=== PATIENT | female | born 1965 | race Caucasian/White ===

== ENCOUNTER 2021-03-09 | Emergency (ER) | payer MEDICARE, SELFPAY ==
--- NOTE | ~2021-03-09 | XR_ITS ---
EXAMINATION: XR hip LT min 2V INDICATION: Left hip pain TECHNIQUE: Two views of the left hip are obtained. COMPARISON: None available FINDINGS: Bone alignment is normal. There is no fracture. Surgical changes are noted in the lower lum bar spine/sacrum and left sacroiliac joint. IMPRESSION: 1. No acute osseous abnormality. Reviewed, dictated and finalized at location A.
[2021-03-09 00:15] VITALS: BP 134/76; PULSE 58; RESP 18; TEMP 36.3; O2SAT 96
[2021-03-09 02:27] VITALS: BP 126/67; PULSE 53; RESP 16; O2SAT 97
[2021-03-09] MEDS: CYCLOBENZAPRINE HCL 10 MG TABLET PO (02:30)
[2021-03-09] MEDS: MORPHINE SULFATE (*CRX) 4 MG/ML INJ IM (02:31)
[2021-03-09] MEDS: methylPREDNISolone SOD SUCC 125 MG VIAL IM (02:34)
--- NOTE | 2021-03-09 03:21 | ED.GENADULT ---
HPI - General Adult General Chief complaint: Extremity Problem,Nontraumatic Stated complaint: Left hip pain Time Seen by Provider: 03/09/21 02:04 History of Present Illness HPI narrative: Patient 56-year-old female presents the emergency department with chief complaint of left hip pain. Patient states that she has had chronic pain that is been getting worse patient reports that the pain shoots down her leg reports that it is worse with movement denies any saddle anesthesia denies bowel or bladder dysfunction. Related Data Allergies Allergy/AdvReac Type Severity Reaction Status Date / Time adhesive Allergy Unknown Unknown Verified 03/09/21 00:20 povidone-iodine Allergy Unknown Unknown Verified 03/09/21 00:20 [From Betadine] gabapentin Allergy Hives Verified 03/09/21 02:28 Review of Systems Review of Systems: A 10 system review of systems was completed on the patient and is negative except for what is stated in the HPI. Nursing and ancillary documentation was reviewed. Exam Narrative: GENERAL: Well-appearing, well-nourished, and in no acute distress. HEAD: Normocephalic, atraumatic. EYES: PERRLA and EOMI. ENT: Nares clear, no rhinorrhea or epistaxis. Mucous membranes moist. NECK: Supple. CHEST: Clear to auscultation. No respiratory distress. HEART: Regular rate and rhythm. No murmur heard. Normal peripheral pulses. ABDOMEN: Soft, nontender, nondistended, normal active bowel sounds. EXTREMITIES: Normal range of motion. No edema. Tenderness to the left SI joint SKIN: Warm, dry, no rash. NEURO: No focal deficits. Alert and oriented x3. PSYCH: Normal mood and affect. Course Vital Signs Vital signs: Vital Signs Temperature 36.3 C L 03/09/21 00:15 Pulse Rate 58 L 03/09/21 00:15 Respiratory Rate 18 03/09/21 00:15 Blood Pressure 134/76 03/09/21 00:15 Pulse Oximetry 96 03/09/21 00:15 Temperature 36.3 C L 03/09/21 00:15 Pulse Rate 53 L 03/09/21 02:27 Respiratory Rate 16 03/09/21 02:27 Blood Pressure 126/67 03/09/21 02:27 Pulse Oximetry 97 03/09/21 02:27 Medical Decision Making Vital Signs Vital Signs: Vital Signs Temperature 36.3 C L 03/09/21 00:15 Pulse Rate 58 L 03/09/21 00:15 Respiratory Rate 18 03/09/21 00:15 Blood Pressure 134/76 03/09/21 00:15 Pulse Oximetry 96 03/09/21 00:15 Temperature 36.3 C L 03/09/21 00:15 Pulse Rate 53 L 03/09/21 02:27 Respiratory Rate 16 03/09/21 02:27 Blood Pressure 126/67 03/09/21 02:27 Pulse Oximetry 97 03/09/21 02:27 Discharge Plan Discharge Clinical Impression: Sciatica Qualifiers: Laterality: left Qualified Code(s): M54.32 - Sciatica, left side Patient Disposition: Home, Self-Care Condition: Stable Instructions: Antibiotic Form, Sciatica (ED) Prescriptions: New methylprednisolone [Medrol (Tyler)] 4 mg tablets,dose pack See Rx Instructions PO .COMPLEX Qty: 21 RF: 0 diazepam [Valium] 2 mg tablet 2 mg PO TID PRN (Reason: muscle spasm) 4 Days Qty: 12 RF: 0 Follow-up/Referrals: PHYSICIAN NOT ON STAFF,NONSTAFF [Primary Care Provider] - Time of Disposition: 04:41
--- NOTE | 2021-03-09 03:24 | PC.NURSE ---
Pt reports generalized itching. Raised area noted to left upper arm. No hives or other s/s reported at this time. EDP notified.
--- NOTE | 2021-03-09 03:29 | PC.NURSE ---
Report given to Nova Sharma RN
[2021-03-09] MEDS: diphenhydrAMINE HCl INJ 50 MG/ML VIAL 25 MG IM (03:30)
[2021-03-09 04:56] VITALS: BP 124/68; PULSE 60; RESP 18; O2SAT 100
== END 2021-03-09 04:57 | disposition home or self-care (01) ==
PROVIDERS: Emergency Provider Emergency Medicine
DX: M54.30 Sciatica, unspecified side (principal)
CPT/HCPCS: 73502; 96372; 99284; A9270; J1200; J2270; J2930

== ENCOUNTER 2021-05-12 19:53 | Emergency (ER) | payer MEDICARE, SELFPAY ==
[2021-05-12 20:00] VITALS: BP 136/62; PULSE 53; RESP 15; TEMP 36.5; O2SAT 97
== END 2021-05-13 03:43 | disposition left against medical advice (07) ==
DX: S39.92XA Unspecified injury of lower back, initial encounter (principal)
CPT/HCPCS: 99199

== ENCOUNTER 2021-05-13 09:25 | Emergency (ER) | payer MEDICARE, SELFPAY ==
--- NOTE | ~2021-05-13 | XR_ITS ---
EXAMINATION: XR hip LT min 2V DATE: 05/13/2021 11:18 INDICATION: Left hip pain. Fall. TECHNIQUE: 3 views of left hip were obtained. COMPARISON: None. FINDINGS: Bone alignment is normal. No fracture. There are 2 sclerotic lesions in the left pelvis wit h the larger measuring 15 mm. Osteitis pubis is noted. There is mild left hip osteoarthritis. There i s internal fixation of the sacroiliac joints with instrumentation. Partially visualized are screws in the sacrum. IMPRESSION: 1. Mild left hip osteoarthritis. 2. Sclerotic lesions in left pelvis measuring up to 15 mm. In the absence of known malignancy, these findings are likely benign bone islands. Reviewed, dictated and finalized at location B. [employer] IMPRESSION: 1. Mild left hip osteoarthritis. 2. Sclerotic lesions in left pelvis measuring up to 15 mm. In the absence of kn own malignancy, these findings are likely benign bone islands.
--- NOTE | ~2021-05-13 | XR_ITS ---
EXAMINATION: XR lumbar spine 2-3V EXAM DATE: 05/13/2021 11:18 INDICATION: Fall, lower back, hx of surgery. Initial encounter. TECHNIQUE: Lumber spine frontal, lateral, lateral L5-S1 projections for interpretation. There is no prior study for comparison. FINDINGS: Sacrum, sacroiliac joints, sacral arcuate lines are intact. There are no acute fractures id entified. Posterior fusion hardware with pedicular screws, linking vertical rods from L3 through S1. No hardware fracture. Interbody fusion at these levels as well as fusion hardware at the sacroiliac joints. L3-L5 laminectomies. Moderate thoracolumbar disc disease. Spine stimulator pack. There are ch olecystectomy clips. Left ischial sclerotic focus measuring about 1 cm, probably bone island. IMPRESSION: 1. Surgical changes. 2. Moderate spondylosis. Reviewed, dictated and finalized at location A. PRINTER
[2021-05-13 09:40] VITALS: BP 123/64; PULSE 85; RESP 18; TEMP 36.3; O2SAT 99
--- NOTE | 2021-05-13 11:00 | ED.BACK ---
HPI - Back Pain/Injury General Chief Complaint: Extremity Injury, Lower Stated Complaint: Left Hip,Lower back Pain Time Seen by Provider: 05/13/21 11:01 Source: patient and RN notes reviewed Mode of arrival: ambulatory Limitations: no limitations History of Present Illness HPI Narrative: 56-year-old female presents concern for left hip and low back pain. Reports last night she fell off of a ladder. Reports she was about 2 feet off the ground when she fell and landed on her back. She reports left hip pain at rest, worsening pain with weightbearing. She reports she has been taking her already prescribed pain medicine and Aleve without relief of pain. She also reports low back pain, worse on the left. She reports a history of multiple back surgeries, currently has a pain pump. She reports red abrasion on the left arm, denies any other redness or bruising. MD elicited complaint: back pain Related Data Home Medications Medication Instructions Recorded Confirmed albuterol sulfate 2 puff INHALATION QID PRN 05/13/21 05/13/21 aripiprazole 5 mg PO DAILY 05/13/21 05/13/21 bupropion HCl 150 mg PO DAILY 05/13/21 05/13/21 diazepam 2 mg PO DAILY 05/13/21 05/13/21 latanoprost 1 drp EACH EYE DAILY 05/13/21 05/13/21 losartan 50 mg PO DAILY 05/13/21 05/13/21 metronidazole 250 mg PO DAILY 05/13/21 05/13/21 oxycodone-acetaminophen 1 tablet PO DAILY 05/13/21 05/13/21 propranolol 40 mg PO DAILY 05/13/21 05/13/21 ropinirole 5 mg PO DAILY 05/13/21 05/13/21 sertraline 100 mg PO DAILY 05/13/21 05/13/21 zolpidem 10 mg PO DAILY 05/13/21 05/13/21 Allergies Allergy/AdvReac Type Severity Reaction Status Date / Time adhesive Allergy Unknown Unknown Verified 05/13/21 10:24 povidone-iodine Allergy Unknown Unknown Verified 05/13/21 10:24 [From Betadine] gabapentin Allergy Hives Verified 05/13/21 10:24 Sulfa (Sulfonamide Allergy Hives Verified 05/13/21 10:24 Antibiotics) Review of Systems Review of Systems: CONSTITUTIONAL: Denies malaise, chills, sweats, or fever. GASTROINTESTINAL: Denies abdominal pain GENITOURINARY: Denies dysuria or hematuria. SKIN: Reports redness to the left arm MUSCULOSKELETAL: Reports left low back pain, left hip pain NEUROLOGIC: Denies numbness, weakness All systems reviewed & are unremarkable except as noted in HPI and below PMFSH Comments At time of signature, agree with nursing past medical, surgical, social and family history. There is no relevant family history pertinent to the presenting complaint Exam Narrative: GENERAL: Well-appearing, well-nourished, and in no acute distress. HEAD: Normocephalic, atraumatic. EYES: PERRLA, sclera clear ENT: Mucous membranes moist. NECK: Supple. CHEST: No respiratory distress. Speaks in full sentences. HEART: Regular rate and rhythm. ABDOMEN: Soft, nontender, obese EXTREMITIES: Normal gait. Grossly normal range of motion, equal strength and sensation bilateral lower extremities. Left hip tenderness to palpation. No mid spine tenderness SKIN: Warm, dry, no visible rash. NEURO: Alert and oriented x3. PSYCH: Normal mood and affect Course Course Emergency Course: Discussed with patient transfer to emergency room for further evaluation of her pain, patient does not wish to be transferred to the emergency room at this time. Discussed trying a Toradol IM injection, patient is agreeable. Discussed hip x-ray findings and follow-up with primary care. Patient is aware of, understands and agrees to treatment plan. Anticipatory guidance given. Patient agrees to follow-up as directed and is aware of reasons to seek care at the emergency department. Portions of this record may have been created with voice recognition software Vital Signs Vital signs: Vital Signs Temperature 97.3 F L 05/13/21 09:40 Pulse Rate 85 05/13/21 09:40 Respiratory Rate 18 05/13/21 09:40 Blood Pressure 123/64 05/13/21 09:40 Pulse Oximetry 99 05/13/21 09:40 Temperature 97.3 F L
[2021-05-13] MEDS: KETOROLAC (*BKC) 60 MG/2 ML VIAL IM (11:47)
== END 2021-05-13 12:05 | disposition home or self-care (01) ==
PROVIDERS: Emergency Provider Nurse Practitioner
DX: M25.552 Pain in left hip (principal); M47.816 Spondylosis without myelopathy or radiculopathy, lumbar region; E78.00 Pure hypercholesterolemia, unspecified; I10 Essential (primary) hypertension; Z96.653 Presence of artificial knee joint, bilateral; Z98.42 Cataract extraction status, left eye; Z98.41 Cataract extraction status, right eye; H40.9 Unspecified glaucoma; G25.81 Restless legs syndrome
CPT/HCPCS: 72100; 73502; 96372; 99214; G0463; J1885

== ENCOUNTER 2021-08-11 10:23 | Emergency (ER) | payer MEDICARE, SELFPAY ==
--- NOTE | 2021-08-11 10:31 | ED.FEMALEGU ---
HPI - Female Genitourinary General Chief complaint: Urogenital-Female Stated complaint: Female Urogenital Time Seen by Provider: 08/11/21 10:35 Source: patient, RN notes reviewed and old records reviewed Mode of arrival: ambulatory Limitations: no limitations History of Present Illness HPI Narrative: 56 year old female who presents to [facility] care with complaints of vaginal pain with some bleeding noted after having sexual intercourse on Wednesday. Patient reports that she got engaged on Wednesday and fiance got over zealous during intercourse and she noted bright red bleeding after having sex and has continued to have vaginal pain. Patient denies any bleeding noted today but continues to have vaginal discomfort. Patient reports no concern for any exposure to STD's, denies any vaginal discharge, reports some urinary burning but no urinary frequency or urgency. Related Data Home Medications Medication Instructions Recorded Confirmed albuterol sulfate 2 puff INHALATION QID PRN 05/13/21 08/11/21 losartan 50 mg PO DAILY 05/13/21 08/11/21 oxycodone-acetaminophen 1 tablet PO DAILY PRN 05/13/21 08/11/21 Allergies Allergy/AdvReac Type Severity Reaction Status Date / Time adhesive Allergy Mild Hives Verified 08/11/21 10:30 gabapentin Allergy Mild Hives Verified 08/11/21 10:30 povidone-iodine Allergy Mild Hives Verified 08/11/21 10:30 [From Betadine] Sulfa (Sulfonamide Allergy Mild Hives Verified 08/11/21 10:30 Antibiotics) Review of Systems Review of Systems: CONSTITUTIONAL: Denies fever, chills, or sweats. EYES: Denies visual changes, redness, or discharge. ENT: Denies rhinorrhea, congestion, sore throat, or otalgia. CARDIOVASCULAR: Denies chest pain, palpitations, or edema. RESPIRATORY: Denies cough or dyspnea. GASTROINTESTINAL: Denies abdominal pain, nausea, vomiting, or diarrhea. GENITOURINARY: Positive for dysuria or hematuria. Vaginal pain with some bleeding noted after intercourse on Wednesday SKIN: Denies rash or itching. MUSCULOSKELETAL: chronic back pain, joint pain, or myalgia. NEUROLOGIC: Denies headache, numbness, or weakness. PSYCHIATRIC: Positive for history of anxiety or depression. All systems reviewed & are unremarkable except as noted in HPI and below PMFSH Past Medical History Medical History (Updated 08/11/21 @ 15:38 by Cinda Bingham NP) Chronic back pain Glaucoma Hypertension Restless leg syndrome Surgical History Surgical History (Updated 08/11/21 @ 15:42 by Cinda Bingham NP) History of back surgery x5 History of bilateral knee replacement Social History Social History (Updated 08/11/21 @ 15:40 by Cinda Bingham NP) Alcohol intake: current Alcohol use details: rare social use Substance use: current Substance use type: opiates Last use: for chronic pain Living arrangements: with family Gender identity (if verbalized by the patient): Female Comments At time of signature, agree with nursing past medical, surgical, social and family history. There is no relevant family history pertinent to the presenting complaint Exam Narrative: GENERAL: Well-appearing, well-nourished, and in no acute distress. HEAD: Normocephalic, atraumatic. EYES: PERRLA and EOMI. ENT: Nares clear, no rhinorrhea or epistaxis. Mucous membranes moist. TM's normal with good light reflex, throat pink with no lesions or exudates NECK: Supple. no lymphadenopathy CHEST: Clear to auscultation. No respiratory distress.SAO2 100% on room air HEART: Regular rate and rhythm. No murmur heard. Normal peripheral pulses. ABDOMEN: Soft, nontender, nondistended, normal active bowel sounds.No CVA tenderness, some vaginal discomfort and burning with urination. EXTREMITIES: Normal range of motion. No edema. SKIN: Warm, dry, no rash. NEURO: No focal deficits. Alert and oriented x3. Course Course Level of Care: Express Care Visit Vital Signs Vital signs: Vital Signs Temperature 36.6 C 08/11/21 10
[2021-08-11 10:35] VITALS: BP 121/62; PULSE 61; RESP 18; TEMP 36.6; O2SAT 100
== END 2021-08-11 11:26 | disposition home or self-care (01) ==
PROVIDERS: Emergency Provider Registered Nurse; PCP Physician Assistant
DX: R10.2 Pelvic and perineal pain (principal); N39.0 Urinary tract infection, site not specified; H40.9 Unspecified glaucoma; I10 Essential (primary) hypertension; G25.81 Restless legs syndrome; Z96.653 Presence of artificial knee joint, bilateral
CPT/HCPCS: 81003; 87086; 87088; 99214; G0463

== ENCOUNTER 2023-05-24 11:23 | Emergency (ER) | payer MEDICARE, SELFPAY ==
--- NOTE | ~2023-05-24 | XR_ITS ---
XR hip RT 2V w AP pelvis 05/24/2023 12:08 Indication: Status post recent fall. Right posterior hip pain. Procedure: AP pelvis and 2 views right hip Comparison: Lumbar spine series dated 05/13/2021 Findings: There are surgical changes consistent with anterior fusion with partially visualized hardwa re transfixing the lumbosacral junction. There is interbody fusion at the sacroiliac joints. Mild ost eoarthritis of the hips, left greater than right. There is osteitis pubis. Sclerotic lesion of the le ft pelvis, likely bone island. No acute fracture or traumatic malalignment. Impression: 1: No acute bone or joint abnormality. Reviewed, dictated and finalized at location B. IDE GRINDER Impression: 1: No acute bone or joint abnormality.
[2023-05-24 11:49] VITALS: BP 152/81; PULSE 55; RESP 18; TEMP 35.7; O2SAT 97
--- NOTE | 2023-05-24 11:59 | ED.EXTPRO ---
HPI - Extremity Problem General Chief complaint: Extremity Injury, Lower Stated complaint: fall rt hip and leg pain Time Seen by Provider: 05/24/23 11:52 Source: patient and RN notes reviewed Mode of arrival: ambulatory Limitations: no limitations History of Present Illness HPI Narrative: Patient presents today complaining a right posterior hip pain that radiates down the posterior thigh to the knee. Patient fell backwards 2 weeks ago helping to move a person on a [employer], then that person fell on top of her. States the pain is unchanged since the injury. She reports some tingling in her leg, but this is baseline for her. Denies loss of bowel or bladder control. She currently rates her pain 9/10. She takes Percocet for her chronic pain, which does not help with this acute pain. Patient has fused bilateral SI joints and a spinal cord stimulator. Related Data Home Medications Medication Instructions Recorded Confirmed albuterol sulfate 90 mcg/actuation 2 puff inhalation QID PRN 05/13/21 05/24/23 aerosol inhaler difficulty breathing losartan 50 mg tablet 50 mg PO DAILY 05/13/21 05/24/23 oxycodone-acetaminophen 7.5 mg-325 1 tablet PO DAILY PRN Pain 05/13/21 05/24/23 mg tablet ropinirole 5 mg tablet 5 mg PO DAILY 10/05/22 05/24/23 zolpidem 10 mg tablet 10 mg PO ONCE 10/05/22 05/24/23 Allergies Allergy/AdvReac Type Severity Reaction Status Date / Time adhesive Allergy Mild Hives Verified 05/24/23 11:56 gabapentin Allergy Mild Hives Verified 05/24/23 11:56 povidone-iodine Allergy Mild Hives Verified 05/24/23 11:56 [From Betadine] Sulfa (Sulfonamide Allergy Mild Hives Verified 05/24/23 11:56 Antibiotics) Review of Systems Review of Systems: CONSTITUTIONAL: Denies body aches, fever, chills, or sweats. EYES: Denies visual changes, redness, or discharge. ENT: Denies rhinorrhea, congestion, sore throat, or otalgia. CARDIOVASCULAR: Denies chest pain, palpitations, or edema. RESPIRATORY: Denies cough or dyspnea. GASTROINTESTINAL: Denies abdominal pain, nausea, vomiting, or diarrhea. GENITOURINARY: Denies dysuria or hematuria. SKIN: Denies rash, itching, or wounds. MUSCULOSKELETAL: Denies back pain. + right hip pain NEUROLOGIC: Denies headache, numbness, tingling, or weakness. PSYCH: Denies depression or anxiety. [facility] Past Medical History Medical History Arthritis Asthma Chronic back pain Glaucoma Hypertension Restless leg syndrome Surgical History Surgical History H/O: hysterectomy History of 3 sections 1984, 1987, 1994 History of back surgery x5 History of bilateral knee replacement Family History Family History Father Hypertension Mother Cancer Hypertension Heart problem Grandparent Cancer Hypertension Grandparent Cancer Hypertension Heart problem Social History Social History Social History: Madisyn is currently sexually active, no contraception needed as she had a hysterectomy. Recently remarried. Does not currently have an advanced directive/will. Smoking status: Former smoker Alcohol intake: current Alcohol use details: rare social use Substance use: current Substance use type: opiates Last use: for chronic pain Living arrangements: with family Gender identity (if verbalized by the patient): Female Sexual Orientation (if Verbalized by the Patient): Straight or Heterosexual Spiritual care concerns: No Agree to blood products: Yes Comments At time of signature, I have reviewed and agree with nursing past medical, surgical, social and family history unless otherwise noted. Please see nursing chart for further information. There is no relevant family history pertinent to the presenting complaint
== END 2023-05-24 12:50 | disposition home or self-care (01) ==
PROVIDERS: Emergency Provider Nurse Practitioner; PCP Registered Nurse
DX: M25.551 Pain in right hip (principal); Z87.891 Personal history of nicotine dependence; M19.90 Unspecified osteoarthritis, unspecified site; J45.909 Unspecified asthma, uncomplicated; H40.9 Unspecified glaucoma; I10 Essential (primary) hypertension; G25.81 Restless legs syndrome; Z96.653 Presence of artificial knee joint, bilateral
CPT/HCPCS: 73502; 99213; G0463

== ENCOUNTER 2024-04-03 10:03 | Emergency (ER) | payer MEDICARE, SELFPAY ==
[2024-04-03 10:32] VITALS: BP 152/70; PULSE 71; RESP 20; TEMP 36.7; O2SAT 99
--- NOTE | 2024-04-03 10:43 | ED.URI ---
HPI - URI/Sore Throat General Chief Complaint: Skin/Abscess/Foreign Body Stated Complaint: Rash Time Seen by Provider: 04/03/24 11:00 Source: patient, RN notes reviewed and old records reviewed Mode of arrival: ambulatory Limitations: no limitations History of Present Illness HPI Narrative: patient presents with complaints of red raised rash to bilateral arms for a couple of days. She denies any change in lotions, soaps, detergents. She denies any contact with irritants. She has been applying hydrocortisone with no relief. She voices no other concerns or complaints today Related Data Home Medications Medication Instructions Recorded Confirmed albuterol sulfate 90 mcg/actuation 2 puff inhalation QID PRN 05/13/21 04/03/24 aerosol inhaler difficulty breathing losartan 50 mg tablet 100 mg PO DAILY 05/13/21 05/24/23 oxycodone-acetaminophen 7.5 mg-325 1 tablet PO DAILY PRN Pain 05/13/21 04/03/24 mg tablet ropinirole 5 mg tablet 5 mg PO DAILY 10/05/22 04/03/24 zolpidem 10 mg tablet 10 mg PO ONCE 10/05/22 04/03/24 Allergies Allergy/AdvReac Type Severity Reaction Status Date / Time adhesive Allergy Mild Hives Verified 04/03/24 10:50 gabapentin Allergy Mild Hives Verified 04/03/24 10:50 povidone-iodine Allergy Mild Hives Verified 04/03/24 10:50 [From Betadine] Sulfa (Sulfonamide Allergy Mild Hives Verified 04/03/24 10:50 Antibiotics) Review of Systems Review of Systems: All systems reviewed & are unremarkable except as noted in HPI and below Constitutional: Constitutional: Reports no additional constitutional complaints ENT: Reports system reviewed and no additional complaints, except as documented Cardiovascular: Cardiovascular: Reports no additional cardiovascular complaints Respiratory: Respiratory: Reports no additional respiratory complaints Gastrointestinal: Gastrointestinal: Reports no additional gastrointestinal complaints Integumentary/Breasts: Skin/Breast: Reports system reviewed and no additional complaints, except as docu, Reports as per HPI, Reports pruritus and Reports rash PMFSH Past Medical History Medical History Arthritis Asthma Chronic back pain Glaucoma Hypertension Restless leg syndrome Surgical History Surgical History H/O: hysterectomy History of 3 sections 1984, 1987, 1994 History of back surgery x5 History of bilateral knee replacement Family History Family History Father Hypertension Mother Cancer Hypertension Heart problem Grandparent Cancer Hypertension Grandparent Cancer Hypertension Heart problem Social History Social History Social History: Madisyn is currently sexually active, no contraception needed as she had a hysterectomy. Recently remarried. Does not currently have an advanced directive/will. Smoking status: Former smoker Alcohol intake: current Alcohol use details: rare social use Substance use: current Substance use type: opiates Last use: for chronic pain Living arrangements: with family Gender identity (if verbalized by the patient): Female Sexual Orientation (if Verbalized by the Patient): Straight or Heterosexual Spiritual care concerns: No Agree to blood products: Yes Comments At the time of my signature, I reviewed and agree with the nursing past medical, surgical, social, and family history. There is no relevant family history pertinent to the patient complaint. Exam Const: General: cooperative, no acute distress, alert and awake Orientation/consciousness: oriented to person, oriented to place and oriented to time HENMT: Head: normal to inspection Resp: Effort & Inspection: normal respiratory effort and able to speak in complete sentences Auscultation: clear to auscu
== END 2024-04-03 11:40 | disposition home or self-care (01) ==
PROVIDERS: Emergency Provider Nurse Practitioner Family; PCP Registered Nurse
DX: I10 Essential (primary) hypertension (principal); L25.9 Unspecified contact dermatitis, unspecified cause; Z87.891 Personal history of nicotine dependence; M19.90 Unspecified osteoarthritis, unspecified site; J45.909 Unspecified asthma, uncomplicated; H40.9 Unspecified glaucoma; G25.81 Restless legs syndrome; Z96.653 Presence of artificial knee joint, bilateral
CPT/HCPCS: 99211; G0463

== ENCOUNTER 2024-07-17 10:16 | Emergency (ER) | payer MEDICARE, SELFPAY ==
[2024-07-17] VITALS (11 sets, daily range): BP systolic 125–145; BP diastolic 69–100; PULSE 68–131; RESP 12–21; TEMP 36.7–37.1; O2SAT 96–99
--- OUTSIDE RECORDS SUMMARY | 2024-07-17 11:13 | XMS_ITS | Encounter Summary ---
Author Organization [facility] Address [address] [place] [address]. [place] [address] [place] [address] Care Team Providers Care Benzene Still Utility Operator Name Role Phone Bruno Shankar MD Primary Care Provider [phone] Senthil Kessler MD Unavailable [phone] Dinorah Armendariz Primary Care Provider [phone] Karely Lopez Primary Care Provider [phone] Lavinia Ann RN Unavailable [phone] Encounter Details Date Type Department Care Team (Late st Contact Info) Description 08/01/2018 Abstract [facility] at [address] [address] Hallie Christensen MA Social History Tobacco Use Types Packs/Day Years Used Date Smoking Tobacco: Never Smokeless Tobacco: Never Alcohol Use Standard Drinks/Week Comments Yes 0 (1 standard drink = 0.6 oz pur e alcohol) 2 per year Comments No Sex and Gender Information Value Date Recorded Sex Assigned at Not on file Legal Sex Female 11:50 PM CDT Gender Identity Not on file Sexual Orientation Not on file Occupation Industry Job Start Date Job End Date Not on file Not on file Not on file Not on file documented as of this encounter Progress Notes * Prema Wu, ANP-BC - 08/01/2018 12:09 PM CST PG pt send letter continue current meds NEERING SECRETARY documented in this encounter Plan of Treatment Upcoming Encounters Date Type Department Care Team (Late st Contact Info) Description 12/13/2024 11:00 AM CDT Office Visit [facility] THREE [facility], [address] [place], [place] [id number] Senthil Kessler MD [facility] [address] [place], [place] [id number] documented as of this encounter Procedures Procedure Name Priority Date/Time Associated Diagnosis Comments BASIC METABOLIC PANEL Routine 03/22/2019 CBC (OUTSIDE LAB) Routine 01/24/2018 COMPREHENSIVE METABOLIC PANEL Routine 01/24/2018 LIPID PANEL Routine 01/24/2018 documented in this encounter Results * (ABNORMAL) BASIC METABOLIC PANEL (03/22/2019) SODIUM S/P/B 145 POTASSIUM S/P/B 3.8 CO2 34 CHLORIDE S/P/B 104 GLUCOSE 107 mg/dL CALCIUM S/P/B 9.3 BUN 10 CREATININE S/P/B 0.68 0.5 - 1.0 EGFR AFR. AMER. 113(A) <=90 EGFR NON-AFR. AMER. 98(A) <=90 03/22/2019 [facility] Abstract LABORATORY Final Result * CBC (OUTSIDE LAB) (01/24/2018) WBC 8.9 HGB 14.9 HCT 43.9 PLT 334 01/24/2018 us [facility] Abstract LAB-OUTSIDE/ABSTRACTED Final Result * LIPID PANEL (01/24/2018) CHOLESTEROL 198 HDL 61 TRIGLYCERIDES 88 NON HDL CHOLESTEROL 137 LDL (CALCULATED) 118 01/24/2018 [facility] Abstract LABORATORY Final Result * (ABNORMAL) COMPREHENSIVE METABOLIC PANEL (01/24/2018) SODIUM S/P/B 139 POTASSIUM S/P/B 4.8 CO2 30 CHLORIDE S/P/B 101 GLUCOSE 93 mg/dL CALCIUM S/P/B 9.7 BUN 23 CREATININE S/P/B 1.12(A) 0.5 - 1.0 EGFR AFR. AMER. 64 <=90 EGFR NON-AFR. AMER. 56 <=90 ALKALINE PHOSPHATASE S/P/B 121 ALT 11 AST 14 BILIRUBIN TOTAL S/P/B 0.6 ALBUMIN S/P/B 4.5 3.5 - 5.0 TOTAL PROTEIN S/P/B 7.7 GLOBULIN 3.2 01/24/2018 us Doc [facility] Abstract LABORATORY Final Result documented in this encounter Visit Diagnoses Not on filedocumented in this encounter Care Teams Benzene Still Utility Operator Relationship Specialty Start Date End Date Bruno Shankar MD [address] [place] [address] PCP - General FAMILY PRACTICE 11/20/15 11/17/18 Dinorah Armendariz PA [address] [place] [address] PCP - General PHYSICIAN PRACTICE MANAGEMENT CONSULTANT 11/19/18 01/07/23 Karely Lopez APNP [address] [place] [address] PCP - General NURSE PRACTITIONER 01/08/23 Senthil Kessler MD [address] [address] Akash C++ Quant Developer CARDIOVASCULAR DISEASE 11/20/15 Lavinia Ann, RN [address] [facility] [address] [place] [address] Registered Nurse CARE MANAGEMENT 02/04/24 02/15/24 documented as of this encounter
--- OUTSIDE RECORDS SUMMARY | 2024-07-17 11:13 | XMS_ITS | Encounter Summary ---
Author Organization [facility] Address [address] [place] [address]. [place] [address] [place] [address] Care Team Providers Care Parts Puller Name Role Phone Senthil Kessler MD Unavailable [phone] Karely Lopez Primary Care Provider [phone] Lavinia Ann RN Unavailable [phone] Encounter Details Date Type Department Care Team (Late Contact Info) Description 01/13/2023 Sogou Message Enc [facility], [address] [phone] [facility], [facility] Provider Lab results Social History Tobacco Use Types Packs/Day Years Used Date Smoking Tobacco: Never Smokeless Tobacco: Never Alcohol Use Standard Drinks/Week Comments Yes 0 (1 standard drink = 0.6 oz pur e alcohol) 2 per year PHQ-2 Answer Date Recorded Patient Health Questionnaire-2 Score 0 01/06/2023 Comments No Sex and Gender Information Value Date Recorded Sex Assigned at Not on file Legal Sex Female 11:50 PM CDT Gender Identity Not on file Sexual Orientation Not on file Occupation Industry Job Start Date Job End Date Not on file Not on file Not on file Not on file documented as of this encounter Plan of Treatment Upcoming Encounters Date Type Department Care Team (Late Contact Info) Description 12/13/2024 11:00 AM CDT Office Visit [facility], [facility] [address] [place], [place] [phone] Senthil Kessler MD Three [facility]. [facility] [address] [place] [address] documented as of this encounter Visit Diagnoses Not on filedocumented in this encounter Additional Health Concerns Assessment Noted Time PHQ-9 Depression Total Score: 1 01/07/20 23 1:40 PM CDT documented as of this encounter Care Teams Parts Puller Relationship Specialty Start Date End Date Karely Lopez APNP [address] [place] [address] PCP - General NURSE PRACTITIONER 01/08/23 Senthil Kessler MD Three [facility]. [address] [address] Aaksh Multiple Drum Sander CARDIOVASCULAR DISEASE 11/20/15 Lavinia Ann, RN [address] [facility] [address] [place] [address] Registered Nurse CARE MANAGEMENT 02/04/24 02/15/24 documented as of this encounter
--- OUTSIDE RECORDS SUMMARY | 2024-07-17 11:13 | XMS_ITS | Encounter Summary ---
Author Organization [facility] Address [address] [place] [address]. [place] [address] [place] [address] Care Team Providers Care Mat Roller Name Role Phone Senthil Kessler MD Unavailable [phone] Dinorah Armendariz Primary Care Provider [phone] Karely Lopez Primary Care Provider [phone] Lavinia Ann RN Unavailable [phone] Encounter Details Date Type Department Care Team (Late Contact Info) Description 11/26/2022 OneTeamVisi Message Enc [facility] THREE [address] [address] Mychart, [facility] Provider chest xray Social History Tobacco Use Types Packs/Day Years [...] file Not on file Not on file COVID-19 Exposure Response Date Recorded In the last 10 days, have yo u been in contact with someone who was confirmed or suspected to have Coronavirus/COVID-19? No / Unsure 11/25/2022 11:05 AM CDT documented as of this encounter Plan of Treatment Upcoming Encounters Date Type Department Care Team (Late Contact Info) Description 12/13/2024 11:00 AM CDT Office Visit [facility] THREE [facility], [address] [address] Senthil Kessler MD Three [facility]. [facility] [address] [place] [address] documented as of this encounter Visit Diagnoses Not on filedocumented in this encounter Care Teams Mat Roller Relationship Specialty Start Date End Date Dinorah Armendariz PA [address] [place] [address] PCP - General PHYSICIAN TRUCK SUPERVISOR 11/19/18 01/07/23 Karely Lopez APNP [address] [place] [address] PCP - General NURSE PRACTITIONER 01/08/23 Senthil Kessler MD Three [facility]. [address] [address] [place] Manager Laundry CARDIOVASCULAR DISEASE 11/20/15 Lavinia Ann, RN [address] [facility] [address] [place] [address] Registered Nurse CARE MANAGEMENT 02/04/24 02/15/24 documented as of this encounter
--- OUTSIDE RECORDS SUMMARY | 2024-07-17 11:13 | XMS_ITS | Encounter Summary ---
Author Organization [facility] Address [address] [place] [address]. [place] [address] [place] [address] Care Team Providers Care Joint Setter Name Role Phone Senthil Kessler MD Unavailable [phone] Dinorah Armendariz Primary Care Provider [phone] Karely Lopez Primary Care Provider [phone] aLvinia Ann RN Unavailable [phone] Encounter Details Date Type Department Care Team (Late Contact Info) Description 06/10/2021 AfterYes Message Enc [facility] THREE [address] [address] [employer] Provider Echo Results Social History Tobacco Use Types Packs/Day Years [...] Exposure Response Date Recorded In the last month, have you been in contact with someone who was confirmed or suspected to have Coronavirus / COVID-19? No / Unsure 06/06/2021 2:51 PM MULESER documented as of this encounter Plan of Treatment Upcoming Encounters Date Type Department Care Team (Late Contact Info) Description 12/13/2024 11:00 AM CDT Office Visit [facility] THREE [facility], [facility] [address] [place] [address] Senthil Kessler MD Three [facility]. [facility] [address] [place], [place] [address] documented as of this encounter Visit Diagnoses Not on filedocumented in this encounter Care Teams Joint Setter Relationship Specialty Start Date End Date Dinorah Armendariz PA [address] [place] [address] PCP - General PHYSICIAN SOFTWARE QA SYSTEM SPECIALIST 11/19/18 01/07/23 Karely Lopez APNP [address] [place] [address] PCP - General NURSE PRACTITIONER 01/08/23 Senthil Kessler MD Three [facility]. [facility] [address] [place], [place] [address] [place] [employer] Mill Supervisor CARDIOVASCULAR DISEASE 11/20/15 Lavinia Ann, RN [address] [address] Registered Nurse CARE MANAGEMENT 02/04/24 02/15/24 documented as of this encounter
--- OUTSIDE RECORDS SUMMARY | 2024-07-17 11:13 | XMS_ITS | Encounter Summary ---
Author Organization [facility] Address [address] [place] [address]. [place] [address] [place] [address] Care Team Providers Care Office Professional Name Role Phone Senthil Kessler MD Unavailable Karely Lopez Primary Care Provider [phone] Encounter Details Date Type Department Care Team (Late st Contact Info) Description 03/15/2024 Hard Candy Cases Message Enc [facility] THREE [facility], [address] [id number] Senthil Kessler MD [facility]. [address] [address] Heart monitor results Social History Tobacco Use Types Packs/Day Years Used Date Smoking Tobacco: Never Smokeless Tobacco: Never Alcohol Use Standard Drinks/Week Comments Yes 0 (1 standard drink = 0.6 oz pur e alcohol) 2 per year [facility] Utilities Answer Date Recorded In the past 12 months has e [employer], gas, oil, or water [employer] threatened to shut off services in your home? No 2024 Humiliation, Afraid, Rape, and Kick questionnair e Answer Date Recorded Within the last year, have y ou been afraid of your partner or ex-partner? No 2024 Within the last year, have y ou been humiliated or emotionally abused in other ways by your partner or ex-partner? No Within the last year, have y ou been kicked, hit, slapped, or otherwise physically hurt by your partner or ex-partner? No 2024 Within the last year, have y ou been raped or forced to have any kind of sexual activity by your partner or ex-partner? No 2024 Overall Financial Resource Strain (CARDIA) Answe r Date Recorded How hard is it for you to pa y for the very basics like food, housing, medical care, and heating? Not hard at all 2024 PHQ-2 Answer Date Recorded Patient Health Questionnaire-2 Score 0 12/15/2023 Hunger Vital Sign Answer Date Recorded Within the past 12 months, y ou worried that your food would run out before you got the money to buy more. Never true 02/03/20 24 Within the past 12 months, t he food you bought just didn't last and you didn't have money to get more. Never true 2024 PRAPARE - Transportation Answer Date Re corded In the past 12 months, has l ack of transportation kept you from medical appointments or from getting medications? No 01/19 In the past 12 months, has l ack of transportation kept you from meetings, work, or from getting things needed for daily living? No 2024 Housing Stability Vital Sign Answer Sherif e Recorded In the last 12 months, was t here a time when you were not able to pay the mortgage or rent on time? No 2024 In the past 12 months, how m any times have you moved where you were living? 1 2024 At any time in the past 12 m [facility], were you homeless or living in a mcc (including now)? No 2024 Comments No Sex and Gender Information Value Date Recorded Sex Assigned at Not on file Legal Sex Female 11:50 PM CDT Gender Identity Not on file Sexual Orientation Not on file Occupation Industry Job Start Date Job End Date Not on file Not on file Not on file Not on file documented as of this encounter Functional Status * Are you deaf or do you have serious difficulty hearing Answer Date of Assessment Author Status No 2024 3:52 PM CDT Tania Klein R N Active * Are you blind or do you have serious difficulty seeing, even when wearing glasses? Answer Date of Assessment Author Status No 2024 3:52 PM CDT Tania Klein R N Active * Do you have serious difficulty walking or climbing stairs? Answer Date of Assessment Author Status Yes 2024 3:52 PM CDT Tania Klein R N Active * Do you have difficulty dressing or bathing? Answer Date of Assessment Author Status No 2024 3:52 PM CDT aTnia Klein R N Active * Because of a physical, mental, or emotional condition, do you have difficulty doing errands alone such as visiting a doctor's office or shopping? Answer Date of Assessment Author Status No 2024 3:52 PM CDT Tania Klein R N Active documented as of this encounter Mental Status * Because of a physical, mental, or emotional condition, do you have serious difficulty concentrating, remembering, or making decisions? Answer Entry Date Author Status No 2024 3:52 PM CDT Tania Klein R N Active documented in this encounter Progress Notes * TIFFANY Maldonado - 03/15/2024 9:19 AM CDT I have the prelim, this is NOT the final MD read. Her baseline rhythm was Sinus Rhythm with heart rates ranged between 38 and 140 beats per minute, with average rate of 70 beats per minute. No pauses or clear high degree block. <1% PAC and PVC burden. No Afib or VT. documented in this encounter Plan of Treatment Upcoming Encounters Date Type Department Care Team (Late st Contact Info) Description 12/13/2024 11:00 AM CDT Office Visit [facility], [address] [phone] Senthil Kessler MD [facility]. [place] [address] [address] [place], [place] [id number] documented as of this encounter Goals Goal Patient Goal Type Associated Problems Recent Progress Patient-Stated? Author Health - patient able to perform ADLs independently Lifestyle David Alexander RN documented as of this encounter Visit Diagnoses Not on filedocumented in this encounter Additional Health Concerns Assessment Noted Time PHQ-9 Depression Total Score: 1 01/07/20 23 1:40 PM CDT documented as of this encounter Care Teams Office Professional Relationship Specialty Start Date End Date Karely Lopez APNP [address] [place] [address] PCP - General NURSE PRACTITIONER 01/08/23 Senthil Kessler MD [facility]. [address] [address] [place] Assorter CARDIOVASCULAR DISEASE 11/20/15 documented as of this encounter
--- OUTSIDE RECORDS SUMMARY | 2024-07-17 11:13 | XMS_ITS | Encounter Summary ---
Author Organization [facility] Address [address] [place] [address]. [place] [address] [place] [address] Care Team Providers Care Hospital Attendant Name Role Phone Senthil Kessler MD Unavailable [phone] Dinorah Armendariz Primary Care Provider [phone] Karely Lopez Primary Care Provider [phone] Lavinia Ann RN Unavailable [phone] Encounter Details Date Type Department Care Team (Late Contact Info) Description 11/18/2022 Lifeables Message Enc [facility] THREE [address] [address] [employer], [facility] Provider Lab results Social History Tobacco [...] suspected to have Coronavirus/COVID-19? No / Unsure 11/18/2022 8:02 AM CDT documented as of this encounter Plan of Treatment Upcoming Encounters Date Type Department Care Team (Late Contact Info) Description 12/13/2024 11:00 AM CDT Office Visit [facility] THREE [facility], [address] [address] Senthil Kessler MD Three [facility]. [facility] [address] [place] [address] documented as of this encounter Visit Diagnoses Not on filedocumented in this encounter Care Teams Hospital Attendant Relationship Specialty Start [place] [address] [place] [address] PCP - General PHYSICIAN TECHNICAL SOLUTION ARCHITECT 11/19/18 01/07/23 Karely Lopez APNP [address] [place] [address] PCP - General NURSE PRACTITIONER 01/08/23 Senthil Kessler MD Three [facility]. [address] [id number] [place] Assistant Principal CARDIOVASCULAR DISEASE 11/20/15 Lavinia Ann, RN [address] [address] [address] Registered Nurse CARE MANAGEMENT 02/04/24 02/15/24 documented as of this encounter
--- OUTSIDE RECORDS SUMMARY | 2024-07-17 11:13 | XMS_ITS | Encounter Summary ---
Author Organization [facility] Address [address] [place] [address]. [place] [address] [place] [address] Care Team Providers Care Clothespin Machine Operator Name Role Phone Senthil Kessler MD Unavailable [phone] Karely Lopez Primary Care Provider [phone] Encounter Details Date Type Department Care Team (Late st Contact Info) Description 04/17/2024 IMNEXT Message Enc [facility] THREE [facility], [address] [address] Senthil Kessler MD Three [facility]. [address] [address] Was wondering what the final outcome was from the heart monitor after the Doctor seen it. Also letting Dr. Kessler know u have had two episodes where my heart rate dropped to 35 and gave passed out passed in the past month. Social History Tobacco Use Types Packs/Day Years Used Date Smoking Tobacco: Never Smokeless Tobacco: Never Alcohol Use Standard Drinks/Week Comments Yes 0 (1 standard drink = 0.6 oz pur e alcohol) 2 per year [facility] Utilities Answer Date Recorded In the past 12 months has e electric, gas, oil, or water company threatened to shut off services in your [...] any time in the past 12 m [facility], were you homeless or living in a alf (including now)? No 2024 Comments No Sex [...] CDT Tania Klein R N Active * Because of [...] documented in this encounter Progress Notes * JUAN Kent - 04/28/2024 9:41 AM CST [facility] [place] PT [place] [facility], STILL AWAITING RESULTS. MESSAGE TO RN US POLICE OFFICER * TIFFANY Maldonado - 04/18/2024 3:14 PM CDT Can you review her MCT. Does have some bradycardia. No clear pauses. documented in this encounter Plan of Treatment Upcoming Encounters Date Type Department Care Team (Late st Contact Info) Description 12/13/2024 11:00 AM CDT Office Visit [facility] THREE [facility], [address] [address] Senthil Kessler MD Three [facility]. [address] [address] documented as of this encounter Goals Goal Patient Goal Type Associated Problems Recent Progress Patient-Stated? Author Health - patient able to perform ADLs independently Lifestyle No David Hurd RN documented as of this encounter Visit Diagnoses Not on filedocumented in this encounter Additional Health Concerns Assessment Noted Time PHQ-9 Depression Total Score: 1 01/07/20 23 1:40 PM CDT documented as of this encounter Care Teams Clothespin Machine Operator Relationship Specialty Start Date End Date Karely Lopez APNP [address] [place] [address] PCP - General NURSE PRACTITIONER 01/08/23 Senthil Kessler MD Three [facility]. [address] [address] Akash Tie Layer CARDIOVASCULAR DISEASE 11/20/15 documented as of this encounter
--- OUTSIDE RECORDS SUMMARY | 2024-07-17 11:13 | XMS_ITS | Encounter Summary ---
Author Organization [facility] Address [address] [place] [address]. [place] [address] [place] [address] Care Team Providers Care Specialized Language Instructor Name Role Phone Senthil Kessler MD Unavailable [phone] Dinorah Armendariz Primary Care Provider [phone] Karely Lopez Primary Care Provider [phone] Lavinia Ann RN Unavailable [phone] Encounter Details Date Type Department Care Team (Late st Contact Info) Description 12/23/2022 [employer]Star [employer]ensors Message Enc [facility] [facility] THREE [address] [id number] [place], [facility] Provider Lab results Social History Tobacco Use [...] suspected to have Coronavirus/COVID-19? No / Unsure 12/01/2022 1:41 PM CDT documented as of this encounter Progress Notes * Roxana ContrerasTIFFANY - 12/25/2022 9:26 AM CDT Lets try increasing her spironolactone from 25 to 50 mg daily. Needs a repeat BMP early next week. Keep her Bumex dosing the same for now. * Melonie Jimenez RN - 12/25/2022 8:00 AM CDT . documented in this encounter Plan of Treatment Upcoming Encounters Date Type Department Care Team (Late st Contact Info) Description 12/13/2024 11:00 AM CDT Office Visit [facility] THREE [facility], [address] [phone] Senthil Kessler MD [facility]. [address] [phone] documented as of this encounter Visit Diagnoses Not on filedocumented in this encounter Care Teams Specialized Language Instructor Relationship Specialty Start Date End Date Dinorah Armendariz PA [address] [place] [address] PCP - General PHYSICIAN UNDERWEAR WELTER 11/19/18 01/07/23 Karely Lopez APNP [address] [place] [address] PCP - General NURSE PRACTITIONER 01/08/23 Senthil Kessler MD [facility]. [address] [phone] Akash Intelligence Officer Basic CARDIOVASCULAR DISEASE 11/20/15 Lavinia Ann, RN [address] [address] Registered Nurse CARE MANAGEMENT 02/04/24 02/15/24 documented as of this encounter
--- OUTSIDE RECORDS SUMMARY | 2024-07-17 11:13 | XMS_ITS | Clinical Summary ---
Author Organization [facility] Address [address] [place] [address]. [place] [address] [place] [address] Care Team Providers Care Licensed Massage Practitioner Name Role Phone Senthil Kessler MD Unavailable [phone] Karely Lopez Primary Care Provider [phone] Allergies Active Allergy Reactions Criticality Noted Date Comments Benzoin Contact Dermatitis Medium 05/24/2018 blisters Other reaction(s): Blisters Povidone Iodine Contact Dermatitis Medium 08/02/2017 Blisters Other reaction(s): Blisters Sulfa Antibiotics Hives Medium 08/02/2017 Tape Contact Dermatitis Medium 05/24/2018 Also allergic to steri- strips- blisters Medications zolpidem 10 MG tablet Take 1 tablet (10 mg total) by mouth every evening. Active albuterol sulfate HFA 108 (90 Base) MCG/ACT inhaler Inhale 2 puffs into the lungs as needed for Wheezing or Shortness of breath. 1 Active oxyCODONE-aceta minophen 7.5-325 MG tablet Take 1 tablet by mouth every 6 (six) hours as needed for Pain. 1 Active colestipol 1 g tablet Take 1 tablet (1 g total) by mouth daily as needed (IBS symptoms). 2 Active brimonidine (ALPHAGAN) 0.2 % ophthalmic solution Place 1 drop into both eyes 2 (two) times a day. 2 Active oxybutynin XL (DITROPAN-XL) 5 MG 24 hr tabletIndicatio ns:OAB (overactive bladder) Take 1 tablet (5 mg total) by mouth daily. 30 tablet 2 4 Active spironolactone (ALDACTONE) 50 MG tablet take one tablet by mouth every day 90 tablet 1 4 Active ferrous sulfate, 65 mg elemental, 325 (65 FE) MG tablet Take 1 tablet (325 mg total) by mouth daily with breakfast. 30 tablet 4 Active bumetanide (BUMEX) 1 MG tablet TAKE TWO TABLETS BY MOUTH EVERY MORNING AND ONE TABLET EVERY EVENING. MAY TAKE AN ADDITIONAL TABLET NEEDED FOR 2-3 POUND WEIGHT GAIN 360 tablet 4 Active rOPINIRole (REQUIP) 5 MG tabletIndicatio ns:Restless leg syndrome TAKE ONE TABLET AT BEDTIME. 30 tablet 5 4 Active pregabalin (LYRICA) 75 MG capsule Take 1 capsule (75 mg total) by mouth 2 (two) times daily as needed. 4 Active losartan (COZAAR) 100 MG tablet Take 1 tablet (100 mg total) by mouth daily. 90 tablet 3 4 02/29/20 25 Active potassium chloride CR (K-TAB) 10 MEQ Tab CR tablet TAKE TWO TABLETS BY MOUTH EVERY DAY 180 tablet 1 4 Active Active Problems Problem Noted Date Diagnosed Date Acute on chronic diastolic c ongestive heart failure (CMS/HCC HHS/HCC) 02/11/2024 Symptomatic bradycardia 2024 Carpal tunnel syndrome on left 01/19/2024 Cubital tunnel syndrome on left 01/19/2024 Restless leg syndrome 01/06/2023 Primary insomnia 01/06/2023 Glaucoma (increased eye pressure) 05/27/2022 Lumbar radiculopathy 08/02/2017 Heart murmur 07/10/2016 Bilateral edema of lower extremity 07/10/2016 Essential hypertension Encounters Date Type Department Care Team Description 06/20/2024 Telephone [facility] Family & Internal Medicine [address] [phone] Karely Lopez APNP Radiology Results (Mammogram) 06/15/2024 9:26 AM ASSOCIATE EDITOR - 06/15/2024 11:59 PM ASSOCIATE EDITOR Hospital Encounter [facility] [place] [address] Jose Alberto Hoffmann MD Discharge Disposition: Home or Self Care (Routine Discharge) 06/15/2024 Scan [facility] INFO SRVCS Scanned, [facility] Mammogram (SCAN) 06/15/2024 Orders Only [facility] [place] [address] Jose Alberto Hoffmann MD 06/15/2024 Travel 06/07/2024 11:15 AM ASSOCIATE EDITOR Office Visit [facility] [address] [address] Senthil Kessler MD CHF (FOLLOW UP); Hypertension; Bradycardia 06/07/2024 Travel 05/31/2024 10:34 AM ASSOCIATE EDITOR - 05/31/2024 11:59 PM ASSOCIATE EDITOR Hospital [facility] [place] [address] Jose Alberto Hoffmann MD Discharge Disposition: Home or Self Care (Routine Discharge) 05/31/2024 MyChart Message Enc [facility] Family & Internal Medicine [address] [phone] Karely Lopez, APNP Ropinirole 05/31/2024 MyChart Message Enc [facility] [address] [address] Senthil Kessler MD Blood work 05/31/2024 Orders Only [facility] [place] [address] Jose Alberto Hoffmann MD 05/31/2024 Travel 05/10/2024 Scan [facility] Scanned, [facility] 05/09/2024 Scan [facility] Scanned, [facility] 04/28/2024 8:32 AM ASSOCIATE EDITOR - 04/28/2024 11:59 PM ASSOCIATE EDITOR Hospital Encounter [facility] [place] [address] Jose Alberto Hoffmann MD Discharge Disposition: Home or Self Care (Routine Discharge) 04/28/2024 8:01 AM ASSOCIATE EDITOR - 04/28/2024 8:31 AM ASSOCIATE EDITOR Hospital Encounter [facility] [address] [place] [address] Jose Alberto Hoffmann MD Discharge Disposition: Home or Self Care (Routine Discharge) 04/28/2024 Orders Only [facility] [address] Jose Alberto Hoffmann MD 04/28/2024 Orders Only [facility] [place] [address] Jose Alberto Hoffmann MD 04/28/2024 Travel 04/17/2024 [email or web address] Message Enc [facility], [address] [address] Senthil Kessler MD Was wondering what the final outcome was from the heart monitor after the Doctor seen it. Also letting Dr. Kessler know u have had two episodes where my heart rate dropped to 35 and gave passed out passed in the past month. from Last 3 Months Immunizations Name Administration Dates Next Due COVID-19 Vaccine (Generic) 09/24/2020 Influenza Adult (Generic) 06/02/2022,,03/26/2020,2017,03/27/2018,03/21/2013 Influenza Peds (Generic) 05/31/2019 PFIZER COVID-19 (ORIGINAL FORMULATION, PURPLE CAP) mRNA, LNP-S, PF, 30 MCG/0.3 ML DOSE 09/17/2020,08/27/2020 Pneumococcal (Prevnar 20) 01/06/2023 Tdap (Generic) 03/01/2018 Family History Medical History Relation Comments Arthritis Father Hypertension Father Stent Cardiac Father Unknown Maternal Grandfather Unknown Maternal Grandmother Arthritis Mother CABG Mother Cancer Mother pancreas Heart Disease Mother Stroke Mother Valve Disease Mother Heart Attack Paternal Grandfather Unknown Paternal Grandmother Relation Status Comments Father Maternal Grandfather Maternal Grandmother Mother (Age 73) Paternal Grandfather Paternal Grandmother Social History Tobacco Use Types Packs/Day Years Used Date Smoking Tobacco: Never Smokeless Tobacco: Never Tobacco Cessation:Counseling Given: No Alcohol Use Standard Drinks/Week Comments Yes 0 (1 standard drink = 0.6 oz pur e alcohol) 2 per year [facility] Utilities Answer Date Recorded In the past 12 months has e [employer], gas, oil, or water [employer] threatened to shut off services in your [...] any time in the past 12 m [facility], were you homeless or living in a group home (including now)? No 2024 Comments No Sex and Gender Information Value Date Recorded Sex Assigned at Not on file Legal Sex Female 11:50 PM CDT Gender Identity Not on file Sexual Orientation Not on file Occupation Industry Job Start Date Job End Date Not on file Not on file Not on file Not on file Last Filed Vital Signs Vital Sign Reading Time Taken Comments Blood Pressure 138/82 06/07/2024 10:44 AM ASSOCIATE EDITOR Pulse 94 06/07/2024 10:44 AM ASSOCIATE EDITOR Temperature 36.3 ??C (97.3 ??F) 02/11/2024 11:30 AM C DT Respiratory Rate 14 02/11/2024 11:30 AM CDT Oxygen Saturation 96% 06/07/2024 10:44 AM ASSOCIATE EDITOR Inhaled Oxygen Concentration - - Weight 136.1 kg (300 lb) 06/07/2024 10:44 AM ASSOCIATE EDITOR Height 165.1 cm (5' 5 ) 06/07/2024 10:44 AM ASSOCIATE EDITOR Body Mass Index 49.92 06/07/2024 10:44 AM ASSOCIATE EDITOR Plan of Treatment Upcoming Encounters Date Type Department Care Team (Late st Contact Info) Description 12/13/2024 11:00 AM CDT Office Visit [facility], [address] [phone] Senthil Kessler MD [facility]. [address] [phone] Health Maintenance Due Date Last Done Comments Colorectal Cancer Screening Colonoscopy (10 Years) 1963 Annual Physical 1966 Hepatitis C 1981 Zoster Vaccines (1 of 2) 2013 RSV Immunization or 60+ Years (1 - Risk 60-74 years 1-dose series) 2023 COVID-19 Vaccine (4 - season) 2024 09/24/2020, 09/17/2020, 08/27/2020 Influenza Adult (#1) 2024 06/02/2022, 04/09/2021, 03/26/2020, Additional history exists PHQ-2 (Physician [place]) 06/21/2024 12/15/2023 PHQ-2 (Physician [place]) 12/14/2024 12/15/2023 Mammogram Screening 06/15/2026 06/15/2024, 06/15/2024, 05/05/2023, Additional history exists DTaP, Tdap and Td Vaccines (2 - Td or Tdap) 03/01/2028 03/01/2018 Pneumococcal Vaccine: Pediatrics (0 to 5 Years) and At-Risk Patients (6 to 64 Years) Completed 01/06/2023 Meningococcal B Vaccine Aged Out No l onger eligible based on patient's age to complete this topic Meningococcal Vaccine Aged Out No luisito magalis eligible based on patient's age to complete this topic RSV Immunizations Under 20 Months Aged Out No longer eligible based on patient's age to complete this topic Goals Goal Patient Goal Type Associated Problems Recent Progress Patient-Stated? 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 Procedure Name Priority Date/Time Associated Diagnosis Comments ANCA SCREEN W/RFX TITER Routine 06/15/20 9:48 AM ASSOCIATE EDITOR Abnormal colonoscopy Diarrhea S CEREVISIAE AB (ASCA) IGA Routine 06/15/2024 9:48 AM ASSOCIATE EDITOR Abnormal colonoscopy Diarrhea S CEREVISIAE AB (ASCA) IGG Routine 06/15/2024 9:48 AM ASSOCIATE EDITOR Abnormal colonoscopy Diarrhea MAMMOGRAM GENERIC (SCAN ORDER) 06/15/2024 CARCINOEMBRYONIC ANTIGEN Routine 05/31/2024 10:52 AM ASSOCIATE EDITOR Crohn's disease of large intestine with intestinal obstruction (CMS/HCC HHS/HCC) CARCINOEMBRYONIC ANTIGEN Routine 04/28/2024 11:02 AM ASSOCIATE EDITOR Abnormal colonoscopy CT ABD+PEL WWO CON Routine 04/28/2024 8: 19 AM ASSOCIATE EDITOR Imaging of gastrointestinal tract abnormal from Last 3 Months Results * S CEREVISIAE AB (ASCA) IGG (06/15/2024 9:48 AM ASSOCIATE EDITOR) ASCA IGG 9.8 <=20.0 U 06/20/2024 10:18 AM ASSOCIATE EDITOR [facility] MICHELLE MORALES Comment: Reference range(s): Negative: <=20.0 Equivocal: 20.1 - 29.9 Positive: >=30.0 Antibodies to Saccharomyces cerevisiae are found in approximately 75% of patients with Crohn's disease, 15% of patients with ulcerative colitis, and 5% of the healthy population. High antibody titers increase the likelihood of disease, especially Crohn's disease, and are associated with more aggressive disease. As the inflammation in Crohn's disease is focused at the gut mucosa, most patients have IgA antibodies to S cerevisiae and half of these also have IgG antibodies. A minority of patients have only IgG antibodies to S cerevisiae. Test Performed by Carlos Barreto, [employer] [facility], [address] [place] [address] Spike Rodriguez M.D., Ph.D., Director of Laboratories , [facility] [id number] 06/15/2024 9:48 AM ASSOCIATE EDITOR us Jose Alberto Hoffmann MD LABORATORY Final Result [facility] [address] [place], [place] , * S CEREVISIAE AB (ASCA) IGA (06/15/2024 9:48 AM ASSOCIATE EDITOR) ASCA IGA 11.8 <=20.0 U 06/19/2024 9:13 PM ASSOCIATE EDITOR [facility] MICHELLE MORALES Comment: Reference range(s): Negative : <=20.0 Equivocal: 20.1 - 24.9 Positive: >=25.0 Antibodies to Saccharomyces cerevisiae are found in approximately 75% of patients with Crohn's disease, 15% of patients with ulcerative colitis, and 5% of the healthy population. High antibody titers increase the likelihood of disease, especially Crohn's disease, and are associated with more aggressive disease. As the inflammation in Crohn's disease is focused at the gut mucosa, most patients have IgA antibodies to S cerevisiae and half of these also have IgG antibodies. A minority of patients have only IgG antibodies to S cerevisiae. Test Performed by [facility], [address] [place] [address] Spike Rodriguez M.D., Ph.D., Director of Laboratories , [facility] [id number] 06/15/2024 9:48 AM ASSOCIATE EDITOR Jose Alberto Hoffmann MD LABORATORY Final Result [facility] [phone], * ANCA SCREEN W/RFX TITER (06/15/2024 9:48 AM ASSOCIATE EDITOR) Pathologist [facility] ANCA SCREEN Negative Negative 06/18/2024 5:04 PM ASSOCIATE EDITOR [facility] KELLY MCELROY Comment: ANCA screen uses indirect immunofluorescence to detect antibodies to neutrophil cytoplasmic antigens. A positive screen reflexes to titer and pattern. Patterns include cytoplasmic (c-ANCA) and perinuclear (p-ANCA) both of which are associated with vasculitis, and atypical p-ANCA which is associated with inflammatory bowel disease and other disorders. This specimen produced an unusual result of unclear clinical significance. Immunofluorescence was observed which does not meet the criteria for c-ANCA, p-ANCA or atypical p-ANCA. This may be due to anti-nuclear antibodies or other autoantibodies besides those commonly associated with positive ANCA results. Test Performed by [facility], [address] [place], [place] Spike Rodriguez M.D., Ph.D., Director of Laboratories , [facility] [id number] 06/15/2024 9:48 AM ASSOCIATE EDITOR Jose Alberto Hoffmann MD LABORATORY Final Result Performing Organization Address City/[facility]/ZIP Co de Phone Number [facility] [address] [place], [place] , [place] [phone] * MAMMOGRAM GENERIC (SCAN ORDER) (06/15/2024) Anatomical Region Laterality Modality Other 06/15/2024 us [facility] Scanned SCANNING Final Resu lt * CARCINOEMBRYONIC ANTIGEN (05/31/2024 10:52 AM ASSOCIATE EDITOR) Only the most recent of2 resultswithin the time period is included. CEA 2.9 0.0 - 3.0 NG/ML 05/31/2024 12:10 PM ASSOCIATE EDITOR [facility] Comment: Test was performed using the Siemens method. ??Results obtained with other assay methods or kits cannot be used interchangeably with results obtained by the Siemens method. 05/31/2024 10:5 2 AM ASSOCIATE EDITOR Jose Alberto Hoffmann MD LABORATORY Final Result [facility] [address] [place] [address], [place] [phone] * CT ABD+PEL WWO CON (04/28/2024 8:19 AM ASSOCIATE EDITOR) Anatomical Region Laterality Modality Abdomen Computed Tomogra phy 05/03/2024 10:0 4 AM ASSOCIATE EDITOR Impressions 05/03/2024 10:12 AM ASSOCIATE EDITOR Impression: Mild wall thickening and stranding of the transverse colon compatible with nonspecific colitis. Referred By: JOSE ALBERTO HOFFMANN Interpreted By: Chris Lopes MD, 05/03/2024 10:04 AM Narrative 05/03/2024 10:12 AM ASSOCIATE EDITOR [address] [address] [address] abdomen and pelvis with and without IV contrast Comparison: ??CT abdomen 10/06/2006. Indication: ??Abnormal GI issues for one week.. Technique: ??CT imaging was performed of the abdomen and pelvis prior to and following the administration of intravenous contrast. ??Iodinated contrast was used due to the indications for the examination, to improve disease detection and further define anatomy. Coronal and sagittal reformatted images were generated and reviewed. A dose lowering technique was utilized for this procedure which may include but is not limited to dose reduction techniques, automated exposure control, and/or the use of iterative reconstruction in accordance with ALARA principle. Findings: - Lower Thorax: No suspicious pulmonary abnormalities. ??No pleural or pericardial effusions. - Liver: Normal in morphology and enhancement. ?? Tiny hypoattenuating foci in the right hepatic lobe which is too small to characterize. The portal and hepatic veins are patent. - Biliary and Gallbladder: No intrahepatic or extrahepatic biliary ductal dilatation. ?? The gallbladder is surgically absent. - Spleen: Normal in appearance. - Pancreas: Diffuse fatty atrophy of the pancreas. - Adrenal Glands: Normal in appearance. - Kidneys: Symmetric in size and enhancement. ??No suspicious renal lesions. No hydronephrosis. ??No stones seen on noncontrast phase. - Abdominal and Pelvic Vasculature: No abdominal aortic aneurysm. ??Calcified gonadal vein phleboliths. - Gastrointestinal Tract: No abnormal dilation. ??Mild colonic diverticulosis without evidence for acute diverticulitis. ??Route stranding about the transverse colon with associated wall thickening as seen on axial image 52 of series 7. ??Findings may reflect a mild nonspecific colitis. ??No evidence of perforation, pneumatosis, or portal venous gas. ??Moderate colonic stool burden. ??The appendix is within normal limits. - Peritoneum/Mesentery/Retroperitoneum: No free fluid. ??No free intraperitoneal air. ? - Lymph Nodes: No retroperitoneal, mesenteric, or pelvic lymphadenopathy. - Bladder: Normal in appearance. ??No stones identified. - Pelvic Organs: Hysterectomy. - Body Wall: ??Spinal stimulator device generator in the left gluteal region. - Musculoskeletal: ??No aggressive appearing osseous lesions. ?Postsurgical changes of the sacroiliac joints bilaterally and lumbar spinal fusion L3-S1. Procedure Note Chris Lopes MD - 05/03/2024 [place] [address] [place] [address] CT abdomen and pelvis with and without IV contrast Comparison: CT abdomen 10/06/2006. Indication: Abnormal GI issues for one week.. Technique: CT imaging was performed of the abdomen and pelvis prior toand following the administration of intravenous contrast. Iodinatedcontrast was used due to the indications for the examination, to improvedisease detection and further define anatomy. Coronal and sagittalreformatted images were generated and reviewed. A dose lowering techniquewas utilized for this procedure which may include but is not limited todose reduction techniques, automated exposure control, and/or the use ofiterative reconstruction in accordance with ALARA principle. Findings: - Lower Thorax: No suspicious pulmonary abnormalities. No pleural orpericardial effusions. - Liver: Normal in morphology and enhancement. Tiny hypoattenuating fociin the right hepatic lobe which is too small to characterize. The [place] hepatic veins are patent. - Biliary and Gallbladder: No intrahepatic or extrahepatic biliary ductaldilatation. The gallbladder is surgically absent. - Spleen: Normal in appearance. - Pancreas: Diffuse fatty atrophy of the pancreas. - Adrenal Glands: Normal in appearance. - Kidneys: Symmetric in size and enhancement. No suspicious renallesions. No hydronephrosis. No stones seen on noncontrast phase. - Abdominal and Pelvic Vasculature: No abdominal aortic aneurysm.Calcified gonadal vein phleboliths. - Gastrointestinal Tract: No abnormal dilation. Mild colonicdiverticulosis without evidence for acute diverticulitis. Route strandingabout the transverse colon with associated wall thickening as seen onaxial image 52 of series 7. Findings may reflect a mild nonspecificcolitis. No evidence of perforation, pneumatosis, or portal venous gas.Moderate colonic stool burden. The appendix is within normal limits. - Peritoneum/Mesentery/Retroperitoneum: No free fluid. No freeintraperitoneal air. - Lymph Nodes: No retroperitoneal, mesenteric, or pelviclymphadenopathy. - Bladder: Normal in appearance. No stones identified. - Pelvic Organs: Hysterectomy. - Body Wall: Spinal stimulator device generator in the left glutealregion. - Musculoskeletal: No aggressive appearing osseous lesions.Postsurgical changes of the sacroiliac joints bilaterally and lumbarspinal fusion L3-S1. Impression: Mild wall thickening and stranding of the transverse colon compatible withnonspecific colitis. Referred By: JOSE ALBERTO HOFFMANN Interpreted By: Chris Lopes MD, 05/03/2024 10:04 AM Jose Alberto Hoffmann MD CT Final Result from Last 3 Months Insurance [facility] Advance Directives * Full Code (Latest Code Status on File) Date Activated Date Inactivated Comments 2024 4:07 PM 02/05/2024 3:32 PM * Full Code Date Activated Date Inactivated Comments 2024 3:27 PM 2024 4:07 PM Care Teams Licensed Massage Practitioner Relationship Specialty Start Date End Date Karely Lopez APNP [facility] [place] [address] PCP - General NURSE PRACTITIONER 01/08/23 Senthil Kessler MD [facility]. [address] [address] [place] Licensing Coordinator CARDIOVASCULAR DISEASE 11/20/15
--- OUTSIDE RECORDS SUMMARY | 2024-07-17 11:13 | XMS_ITS | Encounter Summary ---
Author Organization [facility] Address [address] [place] [address]. [place] [address] [place] [address] Care Team Providers Care Marine Diesel Mechanic Name Role Phone Bruno Shankar MD Primary Care Provider [phone] Senthil Kessler MD Unavailable [phone] Dinorah Armendariz Primary Care Provider [phone] Karely Lopez Primary Care Provider [phone] Lavinia Ann RN Unavailable [phone] Encounter Details Date Type Department Care Team (Late st Contact Info) Description 08/03/2016 Abstract [facility] AT [address] [address] Hallie Christensen MA Social History Tobacco Use Types Packs/Day Years Used Date Smoking Tobacco: Never Alcohol Use Standard Drinks/Week Comments Yes 0 (1 standard drink = 0.6 oz pur e alcohol) 2 per year Comments Unknown Sex and Gender Information Value Date Recorded [...] Description 12/13/2024 11:00 AM CDT Office Visit [facility], [address] [phone] Senthil Kessler MD [facility]. [facility] [address] [place], [place] [address] documented as of this encounter Procedures Procedure Name Priority Date/Time Associated Diagnosis Comments BASIC METABOLIC PANEL Routine 07/31/2016 documented in this encounter Results * (ABNORMAL) BASIC METABOLIC PANEL (07/31/2016) SODIUM S/P/B 142 POTASSIUM S/P/B 4.3 CO2 30 CHLORIDE S/P/B 105 GLUCOSE 85 CALCIUM S/P/B 9.5 BUN 12 CREATININE S/P/B 0.7 0.5 - 1.0 EGFR AFR. AMER. 115(A) <=90 EGFR NON-AFR. AMER. 99(A) <=90 07/31/2016 us Doc [facility] LABORATORY Final Result documented in this encounter Visit Diagnoses Not on filedocumented in this encounter Care Teams Marine Diesel Mechanic Relationship Specialty Start Date End Date Bruno Shankar MD [address] [place] [id number] PCP - General FAMILY PRACTICE 11/20/15 11/17/18 Dinorah Armendariz PA [address] [place] [id number] PCP - General PHYSICIAN PRODUCT DEMONSTRATOR 11/19/18 01/07/23 Karely Lopez APNP [address] [place] [id number] PCP - General NURSE PRACTITIONER 01/08/23 Senthil Kessler MD [facility]. [facility] [address] [place], [place] [phone] Akash Job Checker CARDIOVASCULAR DISEASE 11/20/15 Lavinia Ann, RN [address] [facility] [address] [place] [address] Registered Nurse CARE MANAGEMENT 02/04/24 02/15/24 documented as of this encounter
--- OUTSIDE RECORDS SUMMARY | 2024-07-17 11:13 | XMS_ITS | Encounter Summary ---
Author Organization [facility] [place] Address [address] [place] [address]. [place] [address] [place] [address] Care Team Providers Care Web User Experience Strategist Name Role Phone Senthil Kessler MD Unavailable [phone] Karely Lopez Primary Care Provider [phone] Encounter Details Date Type Department Care Team (Late st Contact Info) Description 05/31/2024 [employer] Message Enc [place] [facility], [address] [phone] Senthil Kessler MD [facility]. [address] [phone] Blood work Social History Tobacco Use Types Packs/Day Years Used Date Smoking Tobacco: Never Smokeless Tobacco: Never Alcohol Use Standard Drinks/Week Comments Yes 0 (1 standard drink = 0.6 oz pur e alcohol) 2 per year [facility] Utilities Answer Date Recorded In the past 12 months has e [place], gas, oil, or water [employer] threatened to shut off services in your [...] any time in the past 12 m [facility], were you homeless or living in a jail (including now)? No 2024 Comments No Sex [...] encounter Progress Notes * TIFFANY Maldonado - 05/31/2024 3:40 PM CST Okay for now [employer] documented in this encounter Plan of Treatment Upcoming Encounters Date Type Department Care Team (Late st Contact Info) Description 12/13/2024 11:00 AM CDT Office Visit [facility], [address] [address] Senthil Kessler MD [facility]. [facility] [address] [place], [place] [phone] documented as of this encounter Goals Goal [...] documented as of this encounter Care Teams Web User Experience Strategist Relationship Specialty Start Date End Date Karely Lopez APNP [address] [place] [id number] PCP - General NURSE PRACTITIONER 01/08/23 Senthil Kessler MD [facility]. [address] [id number] [employer] CARDIOVASCULAR DISEASE 11/20/15 documented as of this encounter
--- NOTE | 2024-07-17 11:35 | ECG_ITS ---
Test Date: 2024-07-17 11:52:23 Measurements Intervals [place] Rate: 72 P: -74 WI: 282 QRS: 92 QRSD: 101 T: 12 QT: 382 QTc: 421 Interpretive Statements sinus rhythm artifact Electronically Signed On 07-17-2024 13:40:16 AUTOMATION TEST DEVELOPER by Amanda Rogers M.D.
[2024-07-17] MEDS: SODIUM CHLORIDE 0.9% IV 1,000 ML 999 ML IV CONT (11:46)
[2024-07-17 11:47] LABS: Basophils Percent Auto 0.4 % (0.2-1.2); Eosinophils Percent Auto 0.4 % (0-4.4); Hematocrit 42.3 % (37.0-47.0); Hemoglobin 13.7 g/dL (12.0-15.0); Immature Granulocyte Absolute 0.02 K/mm3 (0.00-0.031); Immature Granulocyte Percent A 0.4 % (0-0.5); Lymphocytes Absolute Auto 1.68 K/mm3 (0.9-3.2); Lymphocytes Percent Auto 31.9 % (18.3-44.2); Mean Corpuscular HGB Conc 32.4 g/dl (32-36); Mean Corpuscular Hemoglobin 28.2 pg (26-34); Mean Platelet Volume 10.9 fl (7.4-10.4); Monocytes Absolute Auto 0.5 K/mm3 (0.1-0.6); Monocytes Percent Auto 9.7 % (2.6-8.5); Neutrophils Percent Auto 57.2 % (45.5-73.1); Platelet Count Result 201 k/mm3 (150-375); Red Blood Count 4.86 M/mm3 (4.2-5.4); Red Cell Distribution Width 14.3 % (11.5-14.5); White Blood Count 5.3 K/mm3 (4.5-10.0)
[2024-07-17] MEDS: ONDANSETRON INJ 4 MG/2 ML VIAL IV PUSH (11:47)
[2024-07-17 11:59] LABS: Alanine Aminotransferase 24 U/L (6-35); Alkaline Phosphatase 85 U/L (38-126); Anion Gap 10 mmol/L (4-12); Aspartate Amino Transferase 27 U/L (14-36); Bilirubin,Total 0.6 mg/dL (0.2-1.3); Blood Urea Nitrogen 9 mg/dL (7-17); Calcium 8.6 mg/dL (8.4-10.2); Carbon Dioxide 30 mmol/L (22-30); Chloride 103 mmol/L (98-107); Estimated CRCL calculation 104 ml/min; Estimated Glomerular Filt Rate > 60; Glucose 105 mg/dL (65-110); Lipase 34 U/L (23-300); Potassium 3.9 mmol/L (3.4-5.0); Sodium 143 mmol/L (137-145)
--- NOTE | 2024-07-17 13:16 | PC.NURSE ---
pt attempted to collect UA and states they missed the cup.
[2024-07-17 14:17] LABS: Add Urine Microscopic? YES; Appearance Urine Clear (Clear); Bacteria Urine None Seen /hpf; Bilirubin Urine Negative (Negative); Blood Urine 1+ (Negative); Color Urine Yellow (Yellow); Glucose Urine UA Negative (Negative); Ketones Urine 2+ mg/dL (Negative); Leukocyte Esterase Ur Trace LEU/UL (Negative); Nitrate Urine Negative (Negative); Non Pathogenic Casts 0-2; Protein Urine Negative (Negative); Specific Grav Ur 1.013 (1.001-1.035); Squamous Epithelial Cell Urine Occasional /hpf (Few); Urobilinogen Urine 0.2 mg/dL (<2.0)
--- NOTE | 2024-07-17 14:28 | ED.ABDPAIN ---
HPI - Abdominal Pain General Chief Complaint: Abdominal Pain Stated Complaint: NVD since Sat Time Seen by Provider: 07/17/24 11:18 History of Present Illness HPI narrative: Patient is a 59-year-old female who presents ER with nausea vomiting as well as diarrhea for the last 3 days. Reports 12 episodes of diarrhea per day and 3-4 episodes of vomiting. No blood. No known sick contacts. Has had no loss of consciousness. Has cramping in her abdomen. No alleviating factors. Related Data Home Medications ?Medication ?Instructions ?Recorded ?Confirmed ?Last Taken ?Type albuterol sulfate 90 mcg/actuation 2 puff inhalation QID PRN 05/13/21 04/03/24 Unknown History aerosol inhaler difficulty breathing losartan 50 mg tablet 100 mg PO DAILY 05/13/21 05/24/23 Unknown History oxycodone-acetaminophen 7.5 mg-325 1 tablet PO DAILY PRN Pain 05/13/21 04/03/24 Unknown History mg tablet ropinirole 5 mg tablet 5 mg PO DAILY 10/05/22 04/03/24 Unknown History zolpidem 10 mg tablet 10 mg PO ONCE 10/05/22 04/03/24 Unknown History Allergies Allergy/AdvReac Type Severity Reaction Status Date / Time adhesive Allergy Mild Hives Verified 07/17/24 11:46 gabapentin Allergy Mild Hives Verified 07/17/24 11:46 povidone-iodine (From Allergy Mild Hives Verified 07/17/24 11:46 Betadine) Sulfa (Sulfonamide Allergy Mild Hives Verified 07/17/24 11:46 Antibiotics) Review of Systems Review of Systems: All systems reviewed & are unremarkable except as noted in HPI and below Constitutional: Constitutional: Reports no additional constitutional complaints Cardiovascular: Cardiovascular: Reports no additional cardiovascular complaints Respiratory: Respiratory: Reports no additional respiratory complaints Gastrointestinal: Gastrointestinal: Reports no additional gastrointestinal complaints Genitourinary: Genitourinary: Reports no additional female genitourinary complaints [facility] Past Medical History Medical History Arthritis Asthma Chronic back pain Glaucoma Hypertension Restless leg syndrome Surgical History Surgical History H/O: hysterectomy History of 3 sections 1984, 1987, 1994 History of back surgery x5 History of bilateral knee replacement Family History Family History Father Hypertension Mother Cancer Hypertension Heart problem Grandparent Cancer Hypertension Grandparent Cancer Hypertension Heart problem Social History Social History Social History: Madisyn is currently sexually active, no contraception needed as she had a hysterectomy. Recently remarried. Does not currently have an advanced directive/will. Smoking status: Former smoker Alcohol intake: current Alcohol use details: rare social use Substance use: current Substance use type: opiates Last use: for chronic pain Living arrangements: with family Gender identity (if verbalized by the patient): Female Sexual Orientation (if Verbalized by the Patient): Straight or Heterosexual Spiritual care concerns: No Agree to blood products: Yes Exam Narrative: GENERAL: Well-appearing, morbidly obese, and in no acute distress. HEAD: Normocephalic, atraumatic. ENT: Mucous membranes moist. CHEST: Clear to auscultation. No respiratory distress. HEART: Tachycardic and regular. Normal peripheral pulses. ABDOMEN: Soft, nontender, nondistended. EXTREMITIES: Normal range of motion. No edema. SKIN: Warm, dry, no rash. NEURO: Alert and oriented x3. PSYCH: Normal mood and affect. Course Course Emergency Course: Patient resting comfortably. Informed of results. No significant lab abnormalities. Tachycardia resolved. Appropriate for discharge home supportive care. Vital Signs Vital signs: Vital Signs Pulse Rate 131 H 07/17/24 11:22 Respiratory Rate 19 07/17/24 11:22 Blood Pressure 141/100 H 07/17/24 11:22 Oxygen Delivery Room Air 07/17/24 11:22 Temperature 98.8 F 07/17/24 11:45 Pulse Rate 76 07/17/24 14:03 Respiratory Rate 14 07/17/24 14:03 Blood Pressure 145/81 H 07/17/24 13:18 Pulse Oximetry 97 07/17/24 14:03 Oxygen Delivery Room Air 07/17/24 11:22 MDM - Abdominal Pain Lab Data 07/17/24 11:38 07/17/24 11:38 Labs: Lab Results 07/17/24 07/17/24 Range/Units 11:38 14:07 WBC 5.3 (4.5-10.0) K/mm3 RBC 4.86 (4.2-5.4) M/mm3 Hgb 13.7 (12.0-15.0) g/dL Hct 42.3 (37.0-47.0) % MCV 87.0 (80-100) fl MCH 28.2 (26-34) pg MCHC 32.4 (32-36) g/dl RDW 14.3 (11.5-14.5) % Plt Count 201 (150-375) k/mm3 MPV 10.9 H (7.4-10.4) fl Immature Gran % (Auto) 0.4 (0-0.5) % Neut % (Auto) 57.2 (45.5-73.1) % Lymph % (Auto) 31.9 (18.3-44.2) % [place] % (Auto) 9.7 H (2.6-8.5) % Eos % (Auto) 0.4 (0-4.4) % Baso % (Auto) 0.4 (0.2-1.2) % Lymph # (Auto) 1.68 (0.9-3.2) K/mm3 [place] # (Auto) 0.5 (0.1-0.6) K/mm3 Eos # (Auto) 0.0 (0-0.3) K/mm3 Baso # (Auto) 0.0 (0.0-0.1) K/mm3 Abs Immat Gran (auto) 0.02 (0.00-0.031) K/mm3 Absolute Neuts (auto) 3.0 (1.3-6.7) K/mm3 Absolute Nucleated RBC 0.000 (0.0-0.012) K/mm3 Nucleated RBC % 0.0 (0.0-0.2) % Sodium 143 (137-145) mmol/L Potassium 3.9 (3.4-5.0) mmol/L Chloride 103 (98-107) mmol/L Carbon Dioxide 30 (22-30) mmol/L Anion Gap 10 (4-12) mmol/L BUN 9 (7-17) mg/dL Creatinine 0.68 L (0.7-1.0) mg/dL Estim Creat Clear Calc 104 ml/min Estimated GFR > 60 (59 - ) Glucose 105 (65-110) mg/dL Calcium 8.6 (8.4-10.2) mg/dL Total Bilirubin 0.6 (0.2-1.3) mg/dL AST 27 (14-36) U/L ALT 24 (6-35) U/L Alkaline Phosphatase 85 (38-126) U/L Total Protein 7.0 (6.3-8.2) g/dL Albumin 4.0 (3.5-5.1) g/dL Lipase 34 (23-300) U/L Urine Color Yellow (Yellow) Urine Appearance Clear (Clear) Urine pH 6.0 (5.0-9.0) Ur Specific [place] 1.013 (1.001-1.035) Urine Protein Negative (Negative) mg/dL Urine Glucose (UA) Negative (Negative) mg/dL Urine Ketones 2+ H (Negative) mg/dL Ur Blood (Man) 1+ H (Negative) Urine Nitrate Negative (Negative) Urine Bilirubin Negative (Negative) Urine Urobilinogen 0.2 (<2.0) mg/dL Leukocyte Esterase Rfl Trace H (Negative) PAULA/UL Urine RBC 6-10 H (0-2) /hpf Urine WBC 11-20 H (0-3) /hpf Ur Squamous Epith Cells Occasional (Few) /hpf Urine Bacteria None seen /hpf Urine Casts 0-2 Discharge Plan Discharge Clinical Impression: Gastroenteritis Patient Disposition: Home, Self-Care Condition: Stable Instructions: Gastroenteritis (ED) Additional Instructions: Please drink plenty of fluids at home. Return to the emergency department if you develop high fevers, have persistent severe abdominal pain, or have bloody stools or vomit, as these could be signs of a more serious medical emergency. Return to the emergency department if you are unable to keep down liquids because of severe nausea/vomiting. Patient Language: Nauruan Prescriptions: New dicyclomine 20 mg tablet 20 mg PO QID Qty: 20 0RF ondansetron 4 mg tablet,disintegrating 4 mg PO Q6H PRN (Reason: nausea and vomiting) Qty: 10 0RF No Action methocarbamol 1,000 mg tablet 1,000 mg PO TID PRN (Reason: pain) Qty: 20 0RF prednisone 50 mg tablet 50 mg PO DAILY Qty: 5 0RF losartan 50 mg tablet 100 mg PO DAILY oxycodone-acetaminophen 7.5-325 mg tablet 1 tablet PO DAILY PRN (Reason: Pain) albuterol sulfate 90 mcg/actuation HFA aerosol inhaler 2 puff INHALATION QID PRN (Reason: difficulty breathing) zolpidem 10 mg tablet 10 mg PO ONCE Rx Instructions: At bedtime ropinirole 5 mg tablet 5 mg PO DAILY Follow-up/Referrals: Jessica,KURT [place] [Primary Care Provider] - 1 Week
== END 2024-07-17 14:50 | disposition home or self-care (01) ==
PROVIDERS: Emergency Provider Emergency Medicine; PCP Registered Nurse
DX: K52.9 Noninfective gastroenteritis and colitis, unspecified (principal); J45.909 Unspecified asthma, uncomplicated; H40.9 Unspecified glaucoma; I10 Essential (primary) hypertension; Z87.891 Personal history of nicotine dependence
CPT/HCPCS: 36415; 80053; 81001; 83690; 85025; 87086; 93005; 96361; 96374; 99284; J2405; J7030